=== PATIENT | female | born 1955 | race African-American/Black ===

== ENCOUNTER 2017-07-12 19:35 | Emergency (ER) | payer MEDICAID ==
[~2017-07-12] VITALS: Ht 162.6 cm; Wt 72.6 kg
[2017-07-12 19:52] VITALS: BP 154/94
[2017-07-12] MEDS ORDERED: BACTRIM DS TAB1 EAC1 ORAL (20:08)
[2017-07-12] MEDS ORDERED: IBUPROFEN600 MG ORAL (20:08)
[2017-07-12] MEDS ORDERED: Lidocaine 1% 10mg/ml/Epi 0.005mg/ml 30ml vial INJ ONE (20:15)
[2017-07-12 20:55] VITALS: BP 154/94
--- NOTE | 2017-07-12 22:09 | Emergency Room Report ---
History of Present Illness General Chief Complaint: Skin Rash/Abscess Source: Patient Present Illness HPI Patient is a 62-year-old female who presented after increased rash to her lower abdomen. Patient onset of symptoms approximately 1 week prior to arrival. Patient denies being diabetic. She denies any immunocompromise. Patient had the been squeezing the lesion subsequently noticed increased discomfort and swelling. Allergies: Coded Allergies: No Known Allergies (Unverified , 07/12/17) Patient History Past Medical History: see triage record Past Surgical History: none Last Menstrual Period: NA Review of Systems All Other Systems: negative except mentioned in HPI Physical Exam Vital Signs Date Time Temp Pulse Resp B/P (MAP) Pulse Ox O2 Delivery O2 Flow Rate FiO2 07/12/17 19:46 98.2 84 18 154/94 98 Room Air 98.2 General Appearance: well appearing, no apparent distress, alert, GCS 15 Head: normocephalic, atraumatic ENT: hearing grossly normal, normal voice Neck: full range of motion, supple Respiratory: no respiratory distress, speaking full sentences Musculoskeletal: no calf tenderness Neurologic: normal inspection, alert, oriented x3, responsive, normal gait Psychiatric: mood/affect normal Skin: other - fluctuance and erythema to left lower abdomen with surrounding erythema Procedures Incision and Drainage Incision and Drainage : Consent: Verbal Site: abdomen Blade Size: 11 I & D Procedure: betadine prep, sterile drapes applied, sterile dressing applied Wound Location: abdomen Wound's Depth, Shape: superficial Wound Length (cm): 1 Wound Explored: clean Irrigated w/ Saline (ccs): 60 Anesthesia: Lidocaine w/ Epi Volume Anesthetic (ccs): 4 Patient Tolerated: Well Complications: None Medical Decision Making Diagnostic Impression: Primary Impression: Skin abscess ER Course Patient presented for skin rash. Differential diagnosis included was not limited to abscess, cellulitis, folliculitis, Fourniere's gangrene. The patient was consented for incision and drainage. The abscess was drained. Patient was noted to have moderate amount of purulent material.The patient is advised to follow up with primary care doctor in 1-2 days for surgical referral. The patient is advised to return to ED if she was unable to see her primary for wound recheck.The patient is advised to have the wound rechecked in 2 days. Patient is advised to return if any worsening condition or if any changes in status that are concerning. This report is dictated with [employer] storage facility housekeeper software which may occasionally lead to discrepancies related to use of this software. Last Vital Signs Date Time Temp Pulse Resp B/P (MAP) Pulse Ox O2 Delivery O2 Flow Rate FiO2 07/12/17 20:55 98.2 18 154/94 98 Room Air 98.2 07/12/17 19:46 84 Status: improved Disposition: HOME, SELF-CARE Condition: Stable Scripts Ibuprofen* (MOTRIN*) 600 Mg Tablet 600 MG ORAL Q8H PRN for For Pain, #30 TAB 0 Refills Prov: Cruz Vargas MD 07/12/17 Trimethoprim/Sulfamethoxazole 160/800* (BACTRIM DS TABLET*) 1 Each Tablet 1 TAB ORAL Q12H, #14 TAB 0 Refills Prov: Cruz Vargas MD 07/12/17 Referrals: Valentin Nava Patient Instructions: Cruz Arroyo MD July 12, 2017 22:09
== END 2017-07-12 20:55 | disposition home or self-care (01) ==
LOC: EMR 20:05
DX: L02.211 Cutaneous abscess of abdominal wall (principal)
CPT/HCPCS: 10060; 99284